=== PATIENT | female | born 2000 | race American Indian/Alaskan Native ===

== ENCOUNTER 2021-09-14 06:14 | Inpatient (IN) | payer OTHER ==
[2021-09-14] MEDS ORDERED: LACTATED RINGERS 1,000 ML IV ONE (06:31)
[2021-09-14] MEDS ORDERED: ONDANSETRON 4 MG/2 ML INJ IV PRN (07:58)
[2021-09-14] MEDS ORDERED: METOCLOPRAMIDE 10 MG/2 ML INJ ONE (08:06)
[2021-09-14] MEDS ORDERED: BUTORPHANOL 2 MG/1 ML INJ ONE (08:29)
--- NOTE | 2021-09-14 08:54 | History and Physical Report ---
History of Present Illness Date of examination: 09/14/21 History of present illness: This is a 21 years old female who presents to our office on approximately 37 weeks gestation. Patient is a [place] refugee arriving here from [place].She has had very limited care Her sponsor/ cousin is serving historical interpreter. Patient states that she had had an ultrasound approximately 3 to 4 weeks prior to being seen in office [facility] which was consistent with her EDC from her LMP. Her initial ultrasound in office was consistent with possible intrauterine restrictions. 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 Patient quickly range ultrasound with perinatologist without clear visu alization heart. Patient presented to labor and delivery with regular contractions initially cervix was 1 cm at the observation advanced to 5 cm. Patient been admitted for active labor. Menstrual History Regularity: regular Menses every: 28 days Duration: 4 LMP: 12/05/2020 test type: urine test BC at conception: none Planned ? no EDC Calculations LMP: 09/11/2021 Past History : 1 Term Births: 0 Premature Births: 0 Living Children: 0 Para: 0 Mult. Births: 0 Prev : 0 Aborta: 0 Elect. Ab: 0 Spont. Ab: 0 Ectopics: 0 Past Medical History: Negative Past Medical History Past Surgical History: Negative Family History Summary: Other Family Member - Has No Family History of Ovarvian Cancer - Entered On: 08/22/2021 Other Family Member - Has No Family History of Colon Cancer - Entered On: 08/22/2021 Other Family Member - Has No Family History of Breast Cancer - Entered On: 08/22/2021 Other Family Member - Has Family History of Hypertension - Entered On: 08/22/2021 Social History: Marital Status: Single Children: 0 Occupation: unemployed Smoking History: Patient has never smoked. Risk Factors: Smoked Tobacco Use: Never smoker Smokeless Tobacco Use: Never Counseled to Quit/Cut Down: yes Passive Smoke Exposure: no HIV High Risk Behavior: low risk Caffeine Use: 0 drinks per day Exercise: no Seatbelt Use: 100 % Alcohol Use: no Drug Use: no Past Medical History Surgery (Non-bakery products checker): Negative Past Surgical History Abnormal PAP: negative Uterine Anomaly: negative Social Hx: Marital Status: Single Children: 0 Occupation: unemployed Smoking History: Patient has never smoked. Infection History Hx of STD: none HIV Risk Eval: low risk Hepatitis B Risk Eval: low risk Genetic History Congenital Heart Defect: Dad: unknown Zoltan Disease: Dad: unknown Thalassemia Dad: unknown Neural Tube Defect Dad: unknown Down's Syndrome Dad: unknown Keron-Sachs Dad: unknown Sickle Cell Disease/Trait Dad: unknown Hemophilia Dad: unknown Muscular Dystrophy Dad: unknown Cystic Fibrosis Dad: unknown Clark Chorea Dad: unknown Mental Retardation Dad: unknown Fragile X Dad: unknown Other Genetic/Chromosomal Disorder Dad: unknown Child w/other defect Dad: unknown Current Allergies (reviewed today): No known allergies Past History Past Medical History: no pertinent history, other (As per HPI) Past Surgical History: no surgical history, other (As per HPI) SILK SPREADER History: other (As per HPI) Family/Genetic History: other (As per HPI) Social history: full code, other (As per HPI) - Obstetrical History Expected Date of Delivery: 09/11/21 Actual Gestation: 40 Week(s) 4 Day(s) : 1 Hx # Term Pregnancies: 0 Number of Pregnancies: 0 Spontaneous Abortions: 0 Number of Living Children: 0 Medications and Allergies Allergies Allergy/AdvReac Type Severity Reaction Status Date / Time No Known Allergies Allergy Verified 09/14/21 06:51 Home Medications Medication Instructions Recorded Confirmed Last Taken Type Ibuprofen [Motrin] 800 mg PO TID PRN #30 tablet 09/15/21 Unknown Rx Active Meds: Active Medications Metoclopramide HCl (Metoclopramide 10 Mg/2 Ml Inj) 10 mg IV Q6H VAZQUEZ Ondansetron HCl (Ondansetron 4 Mg/2 Ml Inj) 4 mg IV Q8H PRN PRN Reason: Nausea And Vomiting Review of Systems All systems: negative - Vital Signs Vital signs: Vital Signs Pulse BP 93 H 110/69 09/14/21 06:29 09/14/21 06:29 Temp Pulse Resp BP Pulse Ox 95 H 20 110/69 95 09/14/21 08:47 09/14/21 07:24 09/14/21 07:24 09/14/21 08:47 - Physical Exam Breasts: Positive: deferred Cardiovascular: Regular rate Lungs: Positive: Normal air movement Abdomen: Positive: normal appearance, soft, other (Gravid) Genitourinary (Female): Positive: normal external genitalia Vagina: Positive: normal moisture Cervix: Positive: other (Per RN) Uterus: Positive: enlarged - Obstetrical FHR: category 1 Uterine Contraction Monitor Mode: External Uterine Contraction Pattern: Regular Uterine Tone Measurement Phase: Resting Uterine Contraction Intensity: Strong/Firm Results Result Diagrams: 09/15/21 04:29 All other labs normal. Assessment and Plan - Patient Problems (1) Abnormal obstetric ultrasound scan Current Visit: Yes Status: Acute Plan to address problem: Discussed with the cook jelly in the ultrasound findings in this note. This patient has been with our practice and alerted the intensive care unit to have at present at delivery to evaluate the after delivery. Information from the perinatology visit was also given to them. (2) Insufficient care, delivered, current hospitalization Current Visit: Yes Status: Acute (3) Active labor at term Current Visit: Yes Status: Acute Plan to address problem: Will admit and follow routine labor and delivery protocol.
[2021-09-14] MEDS ORDERED: METOCLOPRAMIDE 10 MG/2 ML INJ IV SCH (10:00)
[2021-09-14] MEDS ORDERED: OXYTOCIN DRIP 30,000 MILLIUNITS/500 ML BAG IV ONE (10:04)
--- NOTE | 2021-09-14 11:58 | Procedure Note ---
OB Delivery Note - Delivery Date of Delivery: 09/14/21 Surgeon: PAPO URRUTIA Estimated blood loss: other (400cc) - Vaginal Delivery presentation: vertex Delivery position: OA Intrapartum events: meconium Delivery induction: none Delivery augmentation: rupture of membranes Delivery monitor: external FHT, external uterine Route of delivery: Delivery placenta: spontaneous Episiotomy: none Delivery laceration: none Anesthesia: intravenous Delivery comments: Axle And Frame Mechanic present at delivery due to possible presence of congenital heart defect. After delivery infant with good heart rate but had increase of O2 sats was admitted to the intensive care unit for evaluation. - Infant A at 1 minute: 7 at 5 minutes: 8 (Weight 6 pounds 6 ounces) Infant Gender: Female
[2021-09-14] MEDS ORDERED: LOPERAMIDE 2 MG CAP PO PRN (12:02)
[2021-09-14] MEDS ORDERED: TERBUTALINE 1 MG/1 ML INJ SUB-Q PRN (12:02)
[2021-09-14] MEDS ORDERED: miSOPROStol 200 MCG TAB PR PRN (12:02)
[2021-09-14] MEDS ORDERED: OXYTOCIN 10 UNIT/1 ML INJ IM PRN (12:02)
[2021-09-14] MEDS ORDERED: BUTORPHANOL 2 MG/1 ML INJ IV PRN ×2 (12:02)
[2021-09-14] MEDS ORDERED: ACETAMINOPHEN 325 MG TAB PO PRN (12:02)
[2021-09-14] MEDS ORDERED: ePHEDrine SULFATE 50 MG/1 ML INJ IV PRN (12:02)
[2021-09-14] MEDS ORDERED: OXYTOCIN DRIP 30 UNITS/500 ML BAG IV SCH ×2 (12:02→15:53)
[2021-09-14] MEDS ORDERED: LIDOCAINE (2%) 20 MG/1 ML VIAL 20 ML MDV INFILTRATI ONE (12:02)
[2021-09-14] MEDS ORDERED: CARBOPROST TROMETHAMINE 250 MCG/1 ML INJ IM PRN (12:02)
[2021-09-14] MEDS ORDERED: METHYLERGONOVINE MALEATE 0.2 MG/ML VIAL IM PRN (12:02)
[2021-09-14] MEDS ORDERED: LACTATED RINGERS 1,000 ML IV SCH (12:02)
[2021-09-14 13:53] LABS: Hematocrit 33.4 % (30.3-42.9); Hemoglobin 10.7 gm/dl (10.1-14.3); Mean Corpuscular HGB Conc 32 % (30-34); Mean Corpuscular Volume 80 fl (79-97); Platelet Count 230 K/mm3 (140-440); Red Blood Count 4.19 M/mm3 (3.65-5.03); Red Cell Distribution Width 18.2 % (13.2-15.2)
[2021-09-14] MEDS ORDERED: diphenhydrAMINE 25 MG CAP PO PRN (15:53)
[2021-09-14] MEDS ORDERED: oxyCODONE /ACETAMINOPHEN 5-325MG TAB PO PRN (15:53)
[2021-09-14] MEDS ORDERED: MAGNESIUM HYDROXIDE (MOM) ORAL LIQD UDC PO PRN (15:53)
[2021-09-14] MEDS ORDERED: WITCH HAZEL/ GLYCERIN PAD TP PRN (15:53)
[2021-09-14] MEDS ORDERED: LANOLIN/ZINC/DIMETHICONE (LANSINOH) 7 GM TP PRN (15:53)
[2021-09-14] MEDS ORDERED: PROMETHAZINE 25 MG TAB PO PRN (15:53)
[2021-09-14] MEDS: IBUPROFEN 600 MG TAB PO SCH ×2 (18:26→18:39)
[2021-09-14 19:01] LABS: Mucus,Urine FEW /HPF
[2021-09-14 19:14] LABS: Bilirubin,Urine Negative (Negative); Blood,Urine 4+ (Negative); Color,Urine Red (Yellow); PH,Urine 7.5 (5.0-7.0); RBC,Urine > 182.0 /HPF (0.0-6.0); Urobilinogen,Urine < 2.0 mg/dL (<2.0)
[2021-09-15] MEDS: DOCUSATE SODIUM 100 MG CAP PO SCH ×2 (00:34→11:06)
[2021-09-15] MEDS: FERROUS SULFATE 325 MG TAB PO SCH ×2 (00:34→11:17)
[2021-09-15] MEDS: IBUPROFEN 600 MG TAB PO SCH ×3 (00:35→08:25)
[2021-09-15 05:03] LABS: Hematocrit 31.3 % (30.3-42.9)
--- NOTE | 2021-09-15 09:01 | Discharge Summary ---
Providers - Providers Date of Admission: 09/14/21 11:58 Date of discharge: 09/15/21 Attending physician: CRISTIAN HERNANDEZ 09/14/21 15:53 Consult to Director Agency & Strategic Partnerships [CONS] Routine Reason For Exam: assistance with , SNS Primary care physician: CRISTIAN HERNANDEZ Hospitalization Delivery: Episiotomy: none Laceration: none Other procedures: other (RhoGAM given) complications: none Discharge diagnosis: IUP at term delivered baby: female ( born with hypoplastic left heart and transferred to [facility] for treatment) Hospital course: See dictated H&P. Patient was admitted underwent a normal spontaneous vaginal delivery. Her course was benign. She was afebrile throughout her stay. Her day 1 hematocrit was 31.3%. Mother plans to breast-feed. control is undecided. Patient desires discharge today in order to follow with her daughter who was admitted to [facility] Condition at discharge: Good Disposition: 01 HOME / SELF CARE / HOMELESS - Discharge Diagnoses (1) Insufficient care, delivered, current hospitalization Status: Acute (2) Normal delivery at term Status: Acute Plan - Discharge Medications Prescriptions: Ibuprofen [Motrin] 800 mg PO TID PRN #30 tablet PRN Reason: Pain - Provider Discharge Summary Activity: routine, no sex for 6 weeks, no heavy lifting 4 weeks Diet: routine Instructions: routine Additional instructions: [] Smoking cessation referral if applicable(refer to patient education folder for contact #) [] Refer to [facility]'s [facility] Booklet Call your doctor immediately for: * Fever > 100.5 * Heavy vaginal bleeding ( >1 pad per hour) * Severe persistent headache * Shortness of breath * Reddened, hot, painful area to leg or breast * Drainage or odor from incision. *Patient to follow-up in office in 3 to 4 weeks. - Follow up plan Follow up: CRISTIAN HERNANDEZ MD [Primary Care Provider] - 7 Days Forms: [facility] Discharge Summary
[2021-09-15] MEDS ORDERED: PRENATAL VIT27-FE FUMARATE-FOLIC ACID VIT TAB PO SCH (10:00)
--- NOTE | 2021-09-15 10:21 | Event Note ---
Date: 09/15/21 I received a call from the patient's nurse stating that after the patient took the number test that indicated some depression which is expected and situation patient desires to stay and have evaluation by the psychiatry department. We will disability counselor her discharge resume routine care.
[2021-09-15] MEDS ORDERED: MEASLES, MUMPS & RUBELLA 12,500 UNIT/0.5 ML VACCINE SUB-Q ONE (12:05)
[2021-09-15] MEDS ORDERED: TETANUS,DIPH,PERTUSS(ACELL) VACCINE 0.5 ML SYRINGE IM ONE (12:07)
[2021-09-15 12:32] VITALS: BP 99/51
--- NOTE | 2021-09-15 13:22 | Consultation ---
History of Present Illness - Reason for Consult Consult date: 09/15/21 Reason for consult: Ennis score - History of Present Psychiatric Illness The patient was seen today. She is calm, cooperative and pleasant. Her family is at bedside who says she's been translating for the patient. She says the patient's baby has some heart conditions. The patient is depressed because she's concerned about her baby. The baby has to have three hear surgeries according to the cousin. The patient says this is her first child. She says she is concerned about her child because she isn't from here. Her family member says the patient is a refugee from [facility]. They both are concerned that the patient will not be able to stay [place] and will be unable to give the baby proper care in [facility]. She has never seen a psychiatrist before. The patient denies SI/HI or hallucinations. She denies any illicit drug use, alcohol or nicotine. PAST PSYCHIATRIC HISTORY: Diagnoses: Denies Suicide attempts or Self-harm behavior: Denies Prior psychiatric hospitalizations: Denies Substance Abuse history: Denies Previous psychiatric medications tried: Denies Outpatient treatment: Denies PAST MEDICAL HISTORY: None reported Family Psychiatric History: None reported or documented SOCIAL HISTORY Marital Status: Single Living Arrangements: with cousin Employment Status: unemployed Access to guns/weapons: Denies Education: History of Abuse: Denies Legal History: Denies REVIEW OF SYSTEMS Constitutional: Negative for weight loss ENT: Negative for stridor Respiratory: Negative for cough or hemoptysis All other systems reviewed and are negative MENTAL STATUS EXAMINATION General Appearance and Behavior: Age appropriate, wearing appropriate clothes, cooperative, polite with questioning, good eye contact Cooperation: cooperative Psychomotor Behavior: Psychomotor normal Mood: concerned, depressed Affect and affective range: Euthymic Thought Process: Goal directed Thought Content: None Speech: Normal volume, Regular rate and rhythm Suicidal Ideation: Denies Homicidal Ideation: Denies Hallucination: Denies Delusions: None elicited Impulse Control: Limited Insight and Judgment: Limited Memory: good Attention: attentive Orientation: Alert and oriented Diagnoses: Encounter for Mental Health Eval Treatment Plan No meds at this time. The patient to follow up with outpatient services if needed Medical: per primary Disposition: Do not recommend acute psychiatric inpatient treatment The work order detailer to give the patient all necessary resources Will sign off. Thanks [facility] staffed with Dr. Coello Medications and Allergies Allergies Allergy/AdvReac Type Severity Reaction Status Date / Time No Known Allergies Allergy Verified 09/14/21 06:51 Home Medications Medication Instructions Recorded Confirmed Last Taken Type Ibuprofen [Motrin] 800 mg PO TID PRN #30 tablet 09/15/21 Unknown Rx Active Meds: Active Medications Bisacodyl (Bisacodyl 10 Mg Rect Supp) 10 mg [place] BID PRN PRN Reason: Constipation Diphenhydramine HCl (Diphenhydramine 25 Mg Cap) 25 mg PO Q6H PRN PRN Reason: Itching Docusate Sodium (Docusate Sodium 100 Mg Cap) 100 mg PO BID [facility] Last Admin: 09/15/21 11:06 Dose: 100 mg Ferrous Sulfate (Ferrous Sulfate 325 Mg Tab) 325 mg PO BID [facility] Last Admin: 09/15/21 11:17 Dose: 325 mg Oxytocin/Sodium Chloride (Pitocin/Ns 30 Unit/500ml) 30 units in 500 mls @ 40 mls/hr IV TITR [facility] Last Admin: 09/14/21 11:35 Dose: 999 mls/hr Ibuprofen (Ibuprofen 600 Mg Tab) 600 mg PO Q6H [facility] Last Admin: 09/15/21 08:25 Dose: 600 mg Magnesium Hydroxide (Magnesium Hydroxide (Mom) Oral Liqd Udc) 30 ml PO HS PRN PRN Reason: Constipation Multi-Ingredient Ointment (Lanolin/Zinc/Dimethicone (Lansinoh) 7 Gm) 1 applic TP PRN PRN PRN Reason: Sore Nipples Multivitamins/Iron/Calcium ( Lgu93-Fw Fumarate-Folic Acid Vit Tab) 1 each PO QDAY [facility] Last Admin: 09/15/21 11:06 Dose: 1 each Oxycodone/Acetaminophen (Oxycodone /Acetaminophen 5-325mg Tab) 1 tab PO Q6H PRN PRN Reason: Pain, Moderate (4-6) Promethazine HCl (Promethazine 25 Mg Tab) 25 mg PO Q6H PRN PRN Reason: Nausea And Vomiting Sodium Chloride (Sodium Chloride 0.9% 10 Ml Flush Syringe) 10 ml IV PRN NR Stop: 09/25/21 23:59 Witch Lynnette/Glycerin (Witch Lynnette/ Glycerin Pad) 1 each TP PRN PRN PRN Reason: Hemorrhoid/cleansing/soothing Mental Status Exam - Vital signs Last Vital Signs Temp 98.2 F 09/15/21 12:13 Pulse 74 09/15/21 12:13 Resp 20 09/15/21 12:13 BP 99/51 09/15/21 12:13 Pulse Ox 97 09/15/21 12:13 Results Result Diagrams: 09/15/21 04:29 Abnormal lab results 09/14/21 09/14/21 09/15/21 Range/Units 12:02 18:25 04:29 Hgb 10.0 L (10.1-14.3) gm/dl MCH 26 L (28-32) pg RDW 18.2 H (13.2-15.2) % Urine pH 7.5 H (5.0-7.0) Urine WBC (Auto) 16.0 H (0.0-6.0) /HPF All other labs normal.
--- NOTE | 2021-09-15 14:15 | Event Note ---
Date: 09/15/21 Chart reviewed pyschiatry help appreciated. received call from RN patient desires discharge.Patient to keep appt scheduled for 09/17
== END 2021-09-15 15:40 | disposition home or self-care (01) | DRG 775 ==
LOC: TRG 06:14 → LD 06:22 → TRG 11:57 → LD 11:58 → OB 14:58
PROVIDERS: ADMIT Obstetrics & Gynecology; ATTEND Obstetrics & Gynecology
PROC: 10E0XZZ Delivery of Products of Conception, External Approach (ICD-10-PCS; principal; 2021-09-14)
PROC: 3E0234Z Introduction of Serum, Toxoid and Vaccine into Muscle, Percutaneous Approach (ICD-10-PCS; 2021-09-15)
PROC: 3E0134Z Introduction of Serum, Toxoid and Vaccine into Subcutaneous Tissue, Percutaneous Approach (ICD-10-PCS; 2021-09-15)
PROC: 30233S0 Transfusion of Autologous Globulin into Peripheral Vein, Percutaneous Approach (ICD-10-PCS; 2021-09-15)
DX: O77.0 Labor and delivery complicated by meconium in amniotic fluid (principal); Z20.822 Contact with and (suspected) exposure to COVID-19; Z23 Encounter for immunization; Z37.0 Single live birth; Z3A.37 37 weeks gestation of pregnancy; O26.893 Other specified pregnancy related conditions, third trimester; Z67.41 Type O blood, Rh negative
CPT/HCPCS: 36415; 81001; 85014; 85018; 85027; 85461; 86850; 86900; 86901; 87086; 88307; G0378; J0595; J2590; J2765; J2790; J7120; U0003